=== PATIENT | male | born 1980 | race Caucasian/White ===

== ENCOUNTER 2017-04-29 17:08 | Emergency (ER) | payer SELFPAY ==
[~2017-04-29] VITALS: Ht 185.4 cm; Wt 88.0 kg
[2017-04-29 17:10] VITALS: BP 140/79; PULSE 91; RESP 16; TEMP 97.9; O2SAT 99
--- NOTE | 2017-04-29 17:51 | PD ---
Physical Exam Time Seen by Provider: 17:50 Narrative 36 y/o male here for evaluation of toenail pain. Vital signs reviewed. Seen at triage desk. Awaiting bed placement. Data Data Last Documented VS Vital Signs Date Time Temp Pulse Resp B/P Pulse Ox O2 Delivery O2 Flow Rate FiO2 04/29/17 17:10 97.9 91 16 140/79 99 MDM Medical Record Reviewed: Yes Supervised Visit with INGRID: No Kevin Combs Apr 29, 2017 17:51
--- NOTE | 2017-04-29 18:29 | PD ---
HPI Chief Complaint: Injury Time Seen by Provider: 18:26 Travel History International Travel<30 days: No Contact w/Intl Traveler<30days: No Traveled to known affect area: No History of Present Illness HPI 36-year-old male presents emergency Department with complaint of ingrown toenail to his left toenail for the last few months. The just got out of [facility] and says they did not do anything for his toenail in [facility]. He did follow-up with primary care provider and was referred to a milk inspector. He denies any redness, edema, drainage from the site. Symptoms are mild in severity. Denies fever, vomiting. No known allergies. Has no other medical complaints. No other modifying factors or associated signs and symptoms. Allergies-Medications (Allergen,Severity, Reaction): Coded Allergies: No Known Allergies (Unverified , 04/29/17) Review of Systems Except as stated in HPI: all other systems reviewed are Neg Physical Exam Narrative GENERAL: Well-nourished, well-developed male patient, in no acute distress SKIN: Warm and dry. Left great toenail intact and toes without erythema, edema ; tenderness is to the medial aspect of the toenail and there is no drainage or signs of infection. HEAD: Atraumatic. Normocephalic. EYES: Pupils equal and round. No scleral icterus. No injection or drainage. ENT: Mucosa pink and moist. Airway patent. NECK: Trachea midline. CARDIOVASCULAR: Regular rate. RESPIRATORY: No accessory muscle use. GASTROINTESTINAL: Flat. MUSCULOSKELETAL: No obvious deformities. No clubbing. No cyanosis. No edema. NEUROLOGICAL: Awake and alert. Oriented 3. No obvious cranial nerve deficits. Motor grossly within normal limits. Normal speech. PSYCHIATRIC: Appropriate mood and affect; insight and judgment normal. Data Data Last Documented VS Vital Signs Date Time Temp Pulse Resp B/P Pulse Ox O2 Delivery O2 Flow Rate FiO2 04/29/17 17:10 97.9 91 16 140/79 99 MDM Medical Screen Exam Complete: Yes Emergency Medical Condition: No Differential Diagnosis Ingrown toenail, infected ingrown toenail, medical clearance Narrative Course 36-year-old male with toenail pain to the medial aspect of the left great toe. Possible ingrown toenail. There are no signs of infection. Patient is afebrile and nontoxic-appearing. Patient provided information sheet for [facility]. Instructed patient to follow up with podiatry. Vital signs are stable and the patient is stable for outpatient follow-up and treatment. The patient has no urgent or emergent medical complaints. There is no emergent or urgent medical need at this time. I instructed the patient to follow up with their primary care provider. A medical screening exam was performed: At the time of evaluation the presenting medical condition was determined not to be of an emergent nature. The patient was given the option of receiving additional care, but declined. Patient was given options for additional community resources from which to obtain care. The Patient Has Been advised to seek medical attention for their presenting complaint. The patient has been advised to return to the ER at any time if an emergent condition develops. Primary Impression: Encounter for medical screening examination Condition: Stable Keila Arroyo Apr 29, 2017 18:29
== END 2017-04-29 18:35 | disposition left against medical advice (07) ==
LOC: NEPK 17:08
DX: M79.675 Pain in left toe(s) (principal)
CPT/HCPCS: 99281

== ENCOUNTER 2017-05-27 08:41 | Emergency (ER) | payer SELFPAY ==
[~2017-05-27] VITALS: Ht 185.4 cm; Wt 90.0 kg
[2017-05-27 08:42] VITALS: BP 145/83; PULSE 86; RESP 15; TEMP 98.4; O2SAT 98
[2017-05-27 08:50] VITALS: BP 152/76; PULSE 90; RESP 19; O2SAT 98
[2017-05-27] MEDS ORDERED: SERO50TA PO (08:54)
[2017-05-27] MEDS ORDERED: SODIUM CHLOR 0.9% 1000 ML INJ 1,000 ML IV SCH (09:08)
[2017-05-27] MEDS ORDERED: SODIUM CHLORIDE 0.9% FLUSH 10 ML FLUSH IV FLUSH PRN (09:15)
[2017-05-27] MEDS ORDERED: KETOROLAC TROMETHAMINE 30 MG/ML (IVP) VIAL IVP ONE (09:15)
[2017-05-27 09:38] LABS: BLOOD, URINE NEG (NEG); GLUCOSE,URINE NEG (NEG); KETONE, URINE NEG (NEG); NITRITE,URINE NEG (NEG); PH, URINE 6.5 (5.0-8.5); URINE COLOR LIGHT-YELLOW (YELLW/STRAW)
[2017-05-27 09:40] LABS: AUTOMATED NEUTROPHIL # 5.3 TH/MM3 (1.8-7.7); BASOPHIL # 0.1 TH/MM3 (0-0.2); BASOPHIL % 0.7 % (0.0-2.0); EOSINOPHIL # 0.2 TH/MM3 (0-0.4); EOSINOPHIL % 2.3 % (0.0-4.0); HEMATOCRIT 43.3 % (39.0-51.0); HEMO FLAGS DIFF FINAL; LYMPH % 27.3 % (9.0-44.0); LYMPHOCYTE # 2.3 TH/MM3 (1.0-4.8); MEAN CELL VOLUME 89.2 FL (80.0-100.0); MEAN CORPUSCULAR HEMOGLOBIN 30.5 PG (27.0-34.0); MEAN CORPUSCULAR HGB CONC 34.2 % (32.0-36.0); MONO % 7.9 % (0.0-8.0); NEUT % 61.8 % (16.0-70.0); PLATELET COUNT 163 TH/MM3 (150-450); RED BLOOD COUNT 4.86 MIL/MM3 (4.50-5.90); RED CELL DISTRIBUTION WIDTH 14.6 % (11.6-17.2); WHITE BLOOD COUNT 8.6 TH/MM3 (4.0-11.0)
[2017-05-27 09:41] LABS: COMMENT (UR) CULT NOT INDICATED; CULTURE IF INDICATED CULT NOT INDICATED
[2017-05-27 09:51] VITALS: O2SAT 98
[2017-05-27] MEDS ORDERED: DIATRIZOATE MEGLUM/DIATRIZOATE SOD 9 ML CUP ONE (09:53)
[2017-05-27 10:02] LABS: ANION GAP 8 MEQ/L (5-15); AST (GOT) 42 U/L (15-37); BICARBONATE 24.5 MEQ/L (21.0-32.0); BLOOD UREA NITROGEN 11 MG/DL (7-18); CHLORIDE 106 MEQ/L (98-107); GLOMERULAR FILTRATION RATE 112 ML/MIN (>89); POTASSIUM 4.1 MEQ/L (3.5-5.1); SODIUM (NA) 138 MEQ/L (136-145)
[2017-05-27 10:08] LABS: ALKALINE PHOSPHATASE 78 U/L (45-117); ALT (GPT) 84 U/L (12-78); TOTAL BILIRUBIN ADULT 0.2 MG/DL (0.2-1.0)
--- NOTE | 2017-05-27 10:31 | PD ---
HPI Chief Complaint: Abdominal Pain Time Seen by Provider: 09:07 Travel History International Travel<30 days: No Contact w/Intl Traveler<30days: No Traveled to known affect area: No History of Present Illness HPI 36-year-old male with no significant past medical's, presents today with complaints of left lower abdominal pain. Patient states it started hurting a couple days ago. He denies any chills. He does report night sweating. There is no reported diarrhea. As no reported nausea vomiting. He does report that he has constipation and strains heavily over bowel movements. He's had a previous right inguinal hernia. There is no dysuria. There is no scrotal pain. There is no inguinal pain. PFSH Past Medical History Insomnia: Yes Past Surgical History Other Surgery: Yes (VASCULAR SURGERY RIGHT UPPER ARM) Social History Alcohol Use: No Tobacco Use: Yes Substance Use: No Allergies-Medications (Allergen,Severity, Reaction): Coded Allergies: No Known Allergies (Unverified , 05/27/17) Reported Meds & Prescriptions Reported Meds & Active Scripts Active Cipro (Ciprofloxacin HCl) 500 Mg Tab 500 Mg PO BID 14 Days Flagyl (Metronidazole) 500 Mg Tab 500 Mg PO TID 21 Days Reported Seroquel (Quetiapine Fumarate) 50 Mg Tab 50 Mg PO HS Review of Systems Except as stated in HPI: all other systems reviewed are Neg General / Constitutional: Positive: Fever (sweating at night), No: Chills HENT: No: Headaches, Lightheadedness Cardiovascular: No: Chest Pain or Discomfort, Palpitations Respiratory: No: Cough, Shortness of Breath Gastrointestinal: Positive: Abdominal Pain (left lower), Constipation (chronic) , No: Nausea, Vomiting, Diarrhea Genitourinary: No: Frequency, Dysuria, Hematuria Musculoskeletal: No: Weakness, Pain Skin: No Rash, No Lesions Neurologic: No: Weakness, Dizziness, Headache Physical Exam Narrative GENERAL: Well-nourished, well-developed patient, in no acute respiratory distress. SKIN: Focused skin assessment warm/dry. HEAD: Normocephalic/atraumatic. EYES: No scleral icterus. No injection or drainage. NECK: Supple, trachea midline. No JVD or lymphadenopathy. CARDIOVASCULAR: Regular rate and rhythm without murmurs, gallops, or rubs. RESPIRATORY: Breath sounds equal bilaterally. No accessory muscle use. GASTROINTESTINAL: Abdomen soft, nondistended. He has subjective left lower quadrant pain to palpation. No rebound. No inguinal pain. MUSCULOSKELETAL: No cyanosis, or edema. BACK: Nontender without obvious deformity. No CVA tenderness. NEUROLOGICAL: Awake and alert. Cranial nerves II through XII intact. Motor grossly within normal limits. Five out of 5 muscle strength in all muscle groups. Normal speech. Data Data Last Documented VS Vital Signs Date Time Temp Pulse Resp B/P (MAP) Pulse Ox O2 Delivery O2 Flow Rate FiO2 05/27/17 09:51 98 Room Air 05/27/17 08:50 90 19 05/27/17 08:42 98.4 Orders Orders Complete Blood Count With Diff (05/27/17 09:08) Comprehensive Metabolic Panel (05/27/17 09:08) Lipase (05/27/17 09:08) Urinalysis - C+S If Indicated (05/27/17 09:08) Ct Abd/Pel W Iv Contrast(Rout) (05/27/17 09:08) Iv Access Insert/Monitor (05/27/17 09:08) Ecg Monitoring (05/27/17 09:08) Oximetry (05/27/17 09:08) Sodium Chlor 0.9% 1000 Ml Inj (Ns 1000 M (05/27/17 09:08) Sodium Chloride 0.9% Flush (Ns Flush) (05/27/17 09:15) Ketorolac Inj (Toradol Inj) (05/27/17 09:15) Oral Contrast - Adult (05/27/17 09:17) Diatrizoate Liq ( Gastromartha Liq) (05/27/17 09:53) Iohexol 350 Inj (Omnipaque 350 Inj) (05/27/17 12:27) Mandatory Outpatient Referral (05/27/17 13:17) Labs Laboratory Tests Test 05/27/17 09:25 White Blood Count 8.6 TH/MM3 Red Blood Count 4.86 MIL/MM3 Hemoglobin 14.8 GM/DL Hematocrit 43.3 % Mean Corpuscular Volume 89.2 FL Mean Corpuscular Hemoglobin 30.5 PG Mean Corpuscular Hemoglobin Concent 34.2 % Red Cell Distribution Width 14.6 % Platelet Count 163 TH/MM3 Mean Platelet Volume 8.5 FL Neutrophils (%) (Auto) 61.8 % Lymphocytes (%) (Auto) 27.3 % Monocytes (%) (Auto) 7.9 % Eosinophils (%) (Auto) 2.3 % Basophils (%) (Auto) 0.7 % Neutrophils # (Auto) 5.3 TH/MM3 Lymphocytes # (Auto) 2.3 TH/MM3 Monocytes # (Auto) 0.7 TH/MM3 Eosinophils # (Auto) 0.2 TH/MM3 Basophils # (Auto) 0.1 TH/MM3 CBC Comment DIFF FINAL Differential Comment Urine Color LIGHT-YELLOW Urine Turbidity CLEAR Urine pH 6.5 Urine Specific [place] 1.005 Urine Protein NEG mg/dL Urine Glucose (UA) NEG mg/dL Urine Ketones NEG mg/dL Urine Occult Blood NEG Urine Nitrite NEG Urine Bilirubin NEG Urine Urobilinogen LESS THAN 2.0 MG/DL Urine Leukocyte Esterase NEG Urine RBC LESS THAN 1 /hpf Urine WBC 1 /hpf Microscopic Urinalysis Comment CULT NOT INDICATED Blood Urea Nitrogen 11 MG/DL Creatinine 0.79 MG/DL Random Glucose 115 MG/DL Total Protein 7.0 GM/DL Albumin 3.7 GM/DL Calcium Level 8.4 MG/DL Alkaline Phosphatase 78 U/L Aspartate Amino Transf (AST/SGOT) 42 U/L Alanine Aminotransferase (ALT/SGPT) 84 U/L Total Bilirubin 0.2 MG/DL Sodium Level 138 MEQ/L Potassium Level 4.1 MEQ/L Chloride Level 106 MEQ/L Carbon Dioxide Level 24.5 MEQ/L Anion Gap 8 MEQ/L Estimat Glomerular Filtration Rate 112 ML/MIN Lipase 134 U/L MDM Medical Decision Making Medical Screen Exam Complete: Yes Emergency Medical Condition: Yes Differential Diagnosis Diverticulitis versus obstipation versus abdominal hernia. Narrative Course 36-year-old male presents with left lower quadrant abdominal pain. Patient states that for 2 days. He is concerned because his mother had colon cancer. The patient has no tarry dark stools. He has no chills but subjective fever. White count was within normal limits. Urinalysis showed no evidence of acute infection. Patient's CT scan shows enteritis and his ileum. There is no other acute findings such as diverticulitis or appendicitis. Given the enteritis, he' ll be treated with Flagyl and ciprofloxacin. There'll be a mandatory referral for an outpatient GI referral. He is instructed return to be Lynne worsening pain, fevers chills, or any other reason. Diagnosis Primary Impression: Enteritis Additional Instructions: A mandatory referral for a human resource assistant has been placed for you. He will receive a call from a nurse informing you when to follow up. Please return of he develop any worsening pain or any other reason the concerns her. Med/Other Pt SpecificInfo: Prescription(s) given Scripts Ciprofloxacin (Cipro) 500 Mg Tab 500 MG PO BID for Infection for 14 Days, TAB 0 Refills Prov: Navarro Newman MD 05/27/17 Metronidazole (Flagyl) 500 Mg Tab 500 MG PO TID for Infection for 21 Days, TAB 0 Refills Prov: Navarro Newman MD 05/27/17 Disposition: 01 DISCHARGE HOME Condition: Stable Navarro Newman MD May 27, 2017 10:30
[2017-05-27] MEDS ORDERED: IOHEXOL 350 MG/ML 10 ML VIAL (for RAD DIAG) IVCONTRAST ONE (12:27)
--- NOTE | 2017-05-27 13:04 | RADRPT ---
EXAM DATE/TIME: 05/27/2017 12:13 [facility] COMPARISON: No previous studies available for comparison. INDICATIONS : Left lower quadrant pain for four days. Painful urination. IV CONTRAST: 88 cc Omnipaque 350 (iohexol) IV ORAL CONTRAST: No oral contrast ingested. RADIATION DOSE: 9.96 CTDIvol (mGy) MEDICAL HISTORY : None SURGICAL HISTORY : None. ENCOUNTER: Initial ACUITY: 1 day PAIN SCALE: 7/10 LOCATION: Left lower quadrant TECHNIQUE: Volumetric scanning of the abdomen and pelvis was performed. Using automated exposure control and ad justment of the mA and/or kV according to patient size, radiation dose was kept as low as reasonably achievable to obtain optimal diagnostic quality images. DICOM format image data is available electro nically for review and comparison. FINDINGS: LOWER LUNGS: The visualized lower lungs are clear. LIVER: Homogeneous density without lesion. There is no dilation of the biliary tree. No calcified gallston es. SPLEEN: Normal size without lesion. PANCREAS: Within normal limits. KIDNEYS: Normal in size and shape. There is no mass, stone or hydronephrosis. ADRENAL GLANDS: Within normal limits. VASCULAR: There is no aortic aneurysm. BOWEL/MESENTERY: Approximate 7 cm length of mild wall thickening of the distal ileum seen in the right lower quadrant, series 601 image 34. It seems a little longer than would be expected for peristalsis. However, I don 't see a lot of inflammatory change in the adjacent fat. The terminal ileum segment appears normal. T here is no bowel obstruction. Large stool in the rectum. Normal appendix. ABDOMINAL WALL: Within normal limits. RETROPERITONEUM: There is no lymphadenopathy. BLADDER: No wall thickening or mass. REPRODUCTIVE: Within normal limits. INGUINAL: There is no lymphadenopathy or hernia. MUSCULOSKELETAL: Within normal limits for patient age. CONCLUSION: 1. Questionable low-grade enteritis of the distal ileum within the right lower quadrant. Please see a raquel. 2. Large amount of stool in the rectum. 3. Otherwise essentially normal CT of the abdomen and pelvis. Vipul Meraz MD on May 27, 2017 at 12:50 Board Certified Radiologist. This report was verified electronically.
[2017-05-27] MEDS ORDERED: CIPR-9 PO (13:20)
[2017-05-27] MEDS ORDERED: METR-1 PO (13:20)
[2017-05-27 13:35] VITALS: BP 137/78
== END 2017-05-27 13:37 | disposition home or self-care (01) ==
LOC: NEPC 08:41
DX: K52.9 Noninfective gastroenteritis and colitis, unspecified (principal); K59.00 Constipation, unspecified; Z79.899 Other long term (current) drug therapy
CPT/HCPCS: 74177; 80053; 81001; 83690; 85025; 96361; 96374; 99285; J1885; J7030; Q9963; Q9967